=== PATIENT | female | born 1980 | race Caucasian/White ===

== ENCOUNTER 2021-04-09 20:46 | Emergency (ER) | payer SELFPAY ==
[2021-04-09 21:28] VITALS: BP 128/93; PULSE 87; RESP 20; TEMP 36.8; O2SAT 97; BMI 24.3
--- NOTE | 2021-04-10 02:14 | XRR_ITS ---
PROCEDURE INFORMATION: Exam: XR Cervical Spine Exam date and time: 04/10/2021 2:14 AM Age: 41 years old Clinical indication: Neck pain TECHNIQUE: Imaging protocol: XR of the cervical spine. Views: 2 or 3 views. COMPARISON: CR Chest 1 [place] [id number] 01/17/2017 9:37 AM FINDINGS: Bones/joints: Normal. No acute fracture. Normal alignment. Soft tissues: Unremarkable. XR/XR cervical spine 3V* [id number] IMPRESSION: No acute findings.
[2021-04-10 03:48] VITALS: BP 120/49; PULSE 73; RESP 16; O2SAT 95
--- NOTE | 2021-04-10 03:50 | ED_ITS ---
HPI - Neck Pain/Injury General: Chief Complaint: Neck Pain/Injury Stated Complaint: Rt Pain on head from eye to shoulder blade Time Seen by Provider: 04/10/21 03:50 Source: patient Mode of arrival: ambulatory Limitations: no limitations History of Present Illness: HPI Narrative: 41-year-old female has a history of chronic neck pain states she has had pain for over [address] Montes De Oca when he was here. States she also sees a chiropractor as well but has not been. States she has been having increasing flares over the last few months. She has not seen her primary care doctor for this. States tonight she is having right neck pain that is like her chronic pain and rates it a 7 out of 10. She denies any worsening improving factors. Denies any numbness or tingling in her arm. Associated symptoms: Denies headache(s) or nausea Review of Systems Const: Denies: fever(s), chills, body aches or change in appetite Eyes: Denies: blurry vision or eye discomfort ENMT: Denies: throat pain or dental pain Card: Denies: chest pain Resp: Denies: dyspnea GI: Denies: abdominal pain, nausea, vomiting or diarrhea : Denies: dysuria Musc: Reports: neck pain Skin/Breast: Denies: rash Neuro: Denies: headache(s) Psych: Denies: depression Bradford/Lymph: Denies: easy bruising All/Imm: Denies: urticaria Physical Exam Const: COMMON NORMALS: no acute distress, patient oriented x3 and healthy appearing HENMT: COMMON NORMALS: normocephalic and atraumatic HEAD & SCALP: normocephalic and atraumatic Eye: COMMON NORMALS: Equal, round and reactive pupils present and EOMs intact bilaterally PUPIL: Yes Equal, round and reactive pupils present Neck/C-Spine: COMMON NORMALS: full ROM and supple Chest: COMMONS NORMALS: normal inspection of the chest and normal palpation of entire chest wall Resp: COMMON NORMALS: normal respiratory effort, No retractions, No use of accessory muscles and clear to auscultation bilaterally AUSCULTATION: clear to auscultation bilaterally Cardio: COMMON NORMALS: regular rate, regular rhythm and No murmurs present (Cardio) RATE: regular rate RHYTHM: regular rhythm GI: COMMON NORMALS: Normal to inspection, nondistended, normoactive bowel sounds present, Soft to palpation, non-tender and no masses PALPATION: Yes Soft to palpation Extremity: COMMON NORMALS: normal to inspection and full ROM Neuro: COMMON NORMALS: patient oriented x3, moves all extremities and no focal motor deficits Psych: COMMON NORMALS: mental status grossly normal, Normal thought process present and cooperative THOUGHT PROCESS: Normal thought process present Skin: COMMON NORMALS: no rashes or lesions noted and no wounds GENERAL SKIN EXAM: no rashes or lesions noted Course Vital Signs: Vital signs: Vital Signs Temperature 98.3 F 04/09/21 21:28 Pulse Rate 73 04/10/21 03:48 Respiratory Rate 16 04/10/21 03:48 Blood Pressure 120/49 04/10/21 03:48 Pulse Oximetry 95 04/10/21 03:48 MDM - Neck Pain/Injury MDM Narrative: Medical decision making narrative: Patient presents here with neck pain that is chronic in nature. Patient is well-appearing here has no neurologic findings. She is stable for discharge is to follow-up with PCP and return if worsening. Discharge Plan Discharge Patient Disposition: Home Clinical Impression: Neck pain Condition: Stable Prescriptions: New methocarbamol 750 mg tablet 750 mg PO Q6H PRN (Reason: spasms) Qty: 20 RF: 0 Naprosyn 500 mg tablet 500 mg PO BID PRN (Reason: pain) Qty: 20 RF: 0 Discharge Orders: Discharge ED (Routine); Ordered 04/10/21 Ordered By: Bell Vásquez Referrals: Ruben Giraldo MD [Primary Care Provider] - 1-3 days Discharge Diet: Advance as tolerated Discharge Activity: Resume usual activity Patient Instructions: Cervical Sprain (ED) Coding Level of Care Code ED Refinery Operator [facility] for [facility] [place]
[2021-04-10] MEDS: dexamethasone 10 mg/mL INJ IM (04:00)
[2021-04-10] MEDS: ketorolac 60 mg/2 mL INJ IM (04:00)
[2021-04-10 04:20] VITALS: BP 106/65; PULSE 68; RESP 16; O2SAT 96
== END 2021-04-10 04:23 | disposition home or self-care (01) ==
PROVIDERS: Emergency Provider Emergency Medicine; PCP Family Medicine
DX: M54.2 Cervicalgia (principal)
CPT/HCPCS: 72040; 96372; 99283; J1100; J1885

== ENCOUNTER 2021-06-03 09:55 | Emergency (ER) | payer SELFPAY ==
[2021-06-03 10:05] VITALS: BP 152/76; PULSE 115; RESP 24; RESP 4; TEMP 37.1; O2SAT 91; BMI 23.5
--- NOTE | 2021-06-03 10:23 | ED_ITS ---
HPI - Headache General: Chief Complaint: Headache Stated Complaint: N/V; COUGH; CONGESTION X 2 DAYS Time Seen by Provider: 06/03/21 09:57 History of Present Illness: HPI Narrative: 41-year-old female comes in complaining of sinus drainage, pressure for last couple days a little bit of cough no fever sweats or chills no nausea vomiting or diarrhea. Most of her pain is in the maxillary area. MD elicited complaint: headache Onset description: gradually Location: facial and maxillary Severity: mild Quality & Timing: aching and throbbing Exacerbating factors: none Relieving factors: nothing Associated symptoms: Reports cough and weakness; Deny chest pain, confusion, diaphoresis, eye pain, eye redness, fever(s), lightheadedness, malaise, nausea, neck stiffness, numbness, paresthesias, photophobia, pre-syncope, rash, seizures, short of breath, sound sensitivity, syncope or vomiting Treatments prior to arrival: none Review of Systems Const: Denies: fever(s), malaise or diaphoresis ENMT: Reports: throat pain, nasal discharge and nasal congestion; Denies: ear or mastoid pain Card: Denies: chest pain, lightheadedness, syncope or pre-syncope Resp: Denies: dyspnea, productive cough or non-productive cough GI: Denies: nausea or vomiting : Denies: flank pain, difficulty voiding, dysuria, urinary frequency or urinary urgency Skin/Breast: Denies: rash Neuro: Denies: confusion Physical Exam Const: COMMON NORMALS: no acute distress GENERAL APPEARANCE: cooperative and comfortable ORIENTATION/CONSCIOUSNESS: Yes awake, Yes oriented to person, Yes oriented to place and Yes oriented to time HENMT: COMMON NORMALS: normocephalic, atraumatic, hearing grossly normal bilaterally, external ears normal, EAC's normal, TM's normal bilaterally and Normal nasal mucous membranes and turbinates present HEAD & SCALP: normocephalic and atraumatic FACE & SINUS: sinus tenderness maxillary (Bilateral) NOSE: Normal nasal mucous membranes and turbinates present EXTERNAL EAR: Yes external ears normal EXTERNAL AUDITORY CANAL: EAC's normal TYMPANIC MEMBRANE: TM's normal bilaterally Eye: DIRECT OPHTHALMOSCOPY: No photophobia Neck/C-Spine: COMMON NORMALS: no JVD Lymph: LYMPHATIC: no lymphadenopathy noted and no lymphedema noted Resp: COMMON NORMALS: normal respiratory effort, No retractions, No use of accessory muscles and clear to auscultation bilaterally AUSCULTATION: clear to auscultation bilaterally Cardio: COMMON NORMALS: no JVD, regular rate, regular rhythm and No murmurs present (Cardio) RATE: regular rate RHYTHM: regular rhythm GI: COMMON NORMALS: Soft to palpation and No hepatosplenomegaly present AUSCULTATION: Yes normoactive bowel sounds PALPATION: Yes Soft to palpation, No Tenderness to palpation present (GI), No Guarding due to palpation present (GI) and Yes No hepatosplenomegaly present Extremity: COMMON NORMALS: normal to inspection, capillary refill normal, no clubbing, cyanosis or edema, no calf tenderness and no pedal edema Neuro: SENSORIUM/ORIENTATION: Yes oriented to person, Yes oriented to place and Yes oriented to time Skin: COMMON NORMALS: no rashes or lesions noted GENERAL SKIN EXAM: no rashes or lesions noted Course Vital Signs: Vital signs: Vital Signs Temperature 98.7 F 06/03/21 10:05 Pulse Rate 115 H 06/03/21 10:05 Respiratory Rate 18 06/03/21 10:40 Blood Pressure 152/76 06/03/21 10:05 Pulse Oximetry 91 06/03/21 10:05 MDM - Headache Lab Data: Labs: Lab Results 06/03/21 10:47 Nasal/Oral COVID-1 9 PCR Not detected Discharge Plan Discharge Patient Disposition: Home Clinical Impression: Sinusitis Condition: Stable Prescriptions: New Augmentin 875-125 mg tablet 1 tab PO BID Qty: 20 RF: 0 pseudoephedrine HCl 60 mg tablet 60 mg PO Q6H PRN (Reason: nasal congestion) Qty: 20 RF: 0 No Action methocarbamol 750 mg tablet 750 mg PO Q6H PRN (Reason: spasms) Qty: 20 RF: 0 Naprosyn 500 mg tablet 500 mg PO BID PRN (Reason: pain) Qty: 20 RF: 0 Discharge Orders: Discharge ED (Routine); Ordered 06/03/21 Ordered By: Chris Madrid Referrals: Ruben Giraldo MD [Primary Care Provider] - Discharge Diet: Usual diet Discharge Activity: Resume usual activity Patient Instructions: Opioid Safety Coding Level of Care Code ED Client Retention Specialist for Marcela Jaya
[2021-06-03 10:40] VITALS: RESP 18
[2021-06-03] MEDS: ketorolac 60 mg/2 mL INJ IM (10:40)
[2021-06-04 15:38] LABS: Coronavirus Test Green County Not Detected
--- NOTE | 2021-06-05 09:02 | PC.NURSE ---
1st attempt made at 0900. Left VM to return call for lab results.
--- NOTE | 2021-06-05 12:17 | PC.NURSE ---
11:12 - Pt returned call to the ER, informed her of Negative results.
== END 2021-06-03 10:52 | disposition home or self-care (01) ==
PROVIDERS: Emergency Provider Family Medicine; PCP Family Medicine
DX: J32.9 Chronic sinusitis, unspecified (principal); Z20.822 Contact with and (suspected) exposure to COVID-19
CPT/HCPCS: 87635; 96372; 99283; J1885

== ENCOUNTER 2021-11-11 14:28 | Emergency (ER) | payer MEDICAID, SELFPAY ==
[2021-11-11 14:43] VITALS: BP 130/76; PULSE 86; RESP 18; TEMP 36.6; O2SAT 96; BMI 23.5
[2021-11-11 14:51] VITALS: PULSE 86; RESP 18; TEMP 36.6; O2SAT 96
--- NOTE | 2021-11-11 14:54 | W.ED.DENTAL ---
HPI - Dental/Oral General: Chief complaint: Dental/Oral Stated complaint: LEft side of face swollen Time Seen by Provider: 11/11/21 14:46 History of Present Illness: Patient has a molar lower left side that is gone bad and swelling now. Is been present for couple days. Patient has discomfort. Associated symptoms: Denies fever(s) Review of Systems Const: Denies: fever(s), chills or body aches Eyes: Denies: eye discomfort ENMT: Reports: dental pain (Swelling left mandible area times couple days); Denies: throat pain Card: Denies: chest pain Resp: Denies: dyspnea GI: Denies: abdominal pain, nausea or vomiting Skin/Breast: Denies: rash Neuro: Denies: headache(s) Psych: Denies: depression or suicidal ideation Physical Exam Const: COMMON NORMALS: no acute distress, patient oriented x3 and alert HENMT: COMMON NORMALS: normocephalic and external ears normal HEAD & SCALP: normocephalic EXTERNAL EAR: Yes external ears normal MOUTH: Normal oral and palatal mucosa present TEETH & GINGIVA IMAGES: 1. Tooth is broken does have filling in it does have tenderness to the gum below that tooth which is #18. Mild swelling left mandible same area. Eye: COMMON NORMALS: EOMs intact bilaterally Neck/C-Spine: COMMON NORMALS: no JVD Lymph: LYMPHATIC: no lymphadenopathy noted Resp: COMMON NORMALS: normal respiratory effort and No use of accessory muscles Cardio: COMMON NORMALS: no JVD GI: INSPECTION: Yes normal to inspection Extremity: COMMON NORMALS: normal to inspection and full ROM Neuro: COMMON NORMALS: patient oriented x3 SENSORIUM/ORIENTATION: Yes alert Psych: COMMON NORMALS: mental status grossly normal Skin: COMMON NORMALS: no rashes or lesions noted GENERAL SKIN EXAM: no rashes or lesions noted Course Vital Signs: Vital signs: Vital Signs Temperature 97.8 F 11/11/21 14:51 Pulse Rate 86 11/11/21 14:51 Respiratory Rate 18 11/11/21 14:51 Blood Pressure 130/76 11/11/21 14:43 Pulse Oximetry 96 11/11/21 14:51 MDM - Dental/Oral Medical Decision Making Dental abscess Discharge Plan Discharge Patient Disposition: Home Clinical Impression: Toothache Condition: Stable Prescriptions: New clindamycin HCl 300 mg capsule 300 mg PO Q8H 7 Days Qty: 21 0RF Celebrex 100 mg capsule 200 mg PO BID Qty: 20 0RF Discontinued naproxen [Naprosyn] 500 mg tablet 500 mg PO BID PRN (Reason: pain) Qty: 20 0RF amoxicillin-pot clavulanate [Augmentin] 875-125 mg tablet 1 tab PO BID Qty: 20 0RF No Action methocarbamol 750 mg tablet 750 mg PO Q6H PRN (Reason: spasms) Qty: 20 0RF pseudoephedrine HCl 60 mg tablet 60 mg PO Q6H PRN (Reason: nasal congestion) Qty: 20 0RF Discharge Orders: Discharge ED (Routine); Ordered 11/11/21 Ordered By: Gabriel Freeman Referrals: Ruben Giraldo MD [Primary Care Provider] - Discharge Diet: Usual diet Discharge Activity: Increase activity as tolerated Patient Instructions: Dental Abscess (ED) Activity Restrictions/Additional Instructions: Follow-up with medical provider as directed. Take medications as prescribed. Return to the ER or your medical provider if condition worsens. Please read and understand discharge instructions. If any questions ask please. Follow-up with dentist soon as possible. Coding Level of Care Code ED Icing And Glaze Maker for [facility] Fwd Exam Comprehensive
[2021-11-11] MEDS: CELEcoxib 200 mg Capsule 400 MG PO (14:56)
== END 2021-11-11 15:14 | disposition home or self-care (01) ==
PROVIDERS: Emergency Provider Nurse Practitioner Family; PCP Family Medicine
DX: K08.89 Other specified disorders of teeth and supporting structures (principal)
CPT/HCPCS: 99282

== ENCOUNTER 2022-01-11 17:15 | Emergency (ER) | payer MEDICAID, SELFPAY ==
[2022-01-11 18:10] VITALS: BP 119/83; PULSE 98; RESP 20; TEMP 37.3; O2SAT 98
--- NOTE | 2022-01-11 19:04 | ED_ITS ---
HPI - Abdominal Pain General: Chief Complaint: Abdominal Pain Stated Complaint: L side pain Time Seen by Provider: 01/11/22 19:04 History of Present Illness: 41-year-old female in with multiple concerns including some left-sided chest pain that radiates down into her flank and low back. The patient reports that she has had repetitive nausea and vomiting she says that she has vomited some 20 times today. She does not feel like she has been running a fever. Patient denies any hematuria. She does have a history of kidney stones but reports this feels different. No skin rash or vaginal discharge. She denies . The patient does not have a headache or any constitutional symptoms. Patient notes no palliative or provocative factors to her pain. Review of Systems General: Reports: 10 or more systems reviewed and unremarkable except in HPI and below Physical Exam Const: COMMON NORMALS: no acute distress, patient oriented x3, alert and well nourished Eye: COMMON NORMALS: Equal, round and reactive pupils present, EOMs intact bilaterally and conjunctivae normal CONJUNCTIVA: Yes conjunctivae normal PUPIL: Yes Equal, round and reactive pupils present Neck/C-Spine: COMMON NORMALS: full ROM, no lymphadenopathy, supple, no meningeal signs and no JVD Resp: COMMON NORMALS: normal respiratory effort, No retractions and clear to auscultation bilaterally AUSCULTATION: clear to auscultation bilaterally Cardio: COMMON NORMALS: no JVD GI: COMMON NORMALS: Normal to inspection, nondistended, normoactive bowel sounds present, Soft to palpation, non-tender, No hepatosplenomegaly present and no masses PALPATION: Yes Soft to palpation and Yes No hepatosplenomegaly present : COMMON NORMALS: Yes no CVA tenderness BLADDER/KIDNEY EXAM: Yes no CVA tenderness Back/Pelvis: COMMON NORMALS: no CVA tenderness Extremity: COMMON NORMALS: normal to inspection, full ROM, capillary refill normal and no joint enlargement Neuro: COMMON NORMALS: patient oriented x3 SENSORIUM/ORIENTATION: Yes alert MENINGEAL SIGNS: Yes no meningeal signs Skin: COMMON NORMALS: no rashes or lesions noted, no wounds, turgor normal and no jaundice GENERAL SKIN EXAM: no rashes or lesions noted and turgor normal Course 2 ED course: 41-year-old female in with concerns of left flank pain and vomiting. Mild temperature elevation. Work-up in the emergency department revealed concerns pyelonephritis. She had nitrate positive urine and some stranding around her kidney but no obstructing stone. Patient was treated in the emergency department felt better and was discharged home with close follow- up. Recommend follow-up with her PCP. Her PCP is someone I know well and have taught him a lot over the years. He should be able to take it from here. Return precautions given to the patient. Vital Signs: Vital signs: Vital Signs Temperature 99.2 F 01/11/22 18:10 Pulse Rate 98 01/11/22 18:10 Respiratory Rate 20 H 01/11/22 18:10 Blood Pressure 119/83 01/11/22 18:10 Pulse Oximetry 98 01/11/22 18:10 MDM - Abdominal Pain Medical Decision Making 41-year-old female in with the some vague symptoms that could be a kidney stone or pyelonephritis or viral infection or regular cystitis. Lab Data : 01/11/22 20:24 01/11/22 20:24 Labs/Radiology: Radiology Impressions Abdomen/Pelvis CT 01/11/22 19:30 IMPRESSION: Punctate nonobstructing stone in the inferior pole of the left kidney. Mild asymmetric left perinephric fat stranding potentially indicative of urinary tract infection/pyelonephritis or possibly sequela of recently passed stone which is not visualized. Correlate with urinalysis. Chest X-Ray 01/11/22 19:30 IMPRESSION: No acute findings. Laboratory Results WBC 13.8 10^3/uL (4.0-10.0) H 01/11/22 20:24 RBC 4.60 10^6/uL (4.1-5.3) 01/11/22 20:24 Hgb 14.4 g/dL (11.5-15.3) 01/11/22 20:24 Hct 43.5 % (37.0-47.0) 01/11/22 20:24 MCV 94.6 fl (81-99) 01/11/22 20:24 MCH 31.3 pg (28.0-34.0) 01/11/22 20:24 MCHC 33.1 g/dL (30.0-36.0) 01/11/22 20:24 RDW 13.8 % (12.1-15.1) 01/11/22 20:24 Plt Count 322 10^3/cmm (130-400) 01/11/22 20:24 MPV 10.2 fL (7.4-10.4) 01/11/22 20:24 Neut % (Auto) 81.2 % 01/11/22 20:24 Lymph % (Auto) 8.7 % 01/11/22 20:24 Jennings % (Auto) 9.5 % 01/11/22 20:24 Eos % (Auto) 0.0 % 01/11/22 20: Baso % (Auto) 0.2 % 01/11/22 20:24 Neut # (Auto) 11.23 10^3/uL (1.8-7.7) H 01/11/22 20: Lymph # (Auto) 1.2 10^3/uL (0.8-4.8) 01/11/22 20: Jennings # (Auto) 1.3 10^3/uL (0.2-0.9) H 01/11/22 20:24 Eos # (Auto) 0.0 10^3/uL (0.0-0.8) 01/11/22 20: Baso # (Auto) 0.0 10^3/uL (0.0-0.1) 01/11/22 20: Nucleated RBC % (auto) 0 % 01/11/22: Nucleated RBCs # 0.0 /100WBC 01/11/22 20:24 Sodium 136 mmol/L (136-145) 01/11/22 20:24 Potassium 3.5 mmol/L (3.5-5.1) 01/11/22: Chloride 102 mmol/L (98-107) 01/11/22 20:24 Carbon Dioxide 23 mmol/L (22-29) 01/11/22 20:24 Anion Gap 14.5 (5-19) 01/11/22 20:24 BUN 10 mg/dL (6-20) 01/11/22 20:24 Creatinine 0.5 mg/dL (0.5-0.9) 01/11/22 20:24 GFR Calculation 136.0 mL/min (90-130) H 01/11/22 20:24 Glucose 102 mg/dL (65-115) 01/11/22 20:24 Calculated Osmolality 281 mOsm/kg (285-295) L 01/11/22 20: Calcium 9.3 mg/dL (8.5-10.5) 01/11/22 20:24 Total Bilirubin 0.4 mg/dL (0.15-1.2) 01/11/22 20:24 AST 11 U/L (0-32) 01/11/22 20:24 ALT 9 U/L (0-33) 01/11/22 20:24 Alkaline Phosphatase 90 IU/L (35-105) 01/11/22 20: Total Protein 7.8 g/dL (6.6-8.7) 01/11/22 20: Albumin 4.1 g/dL (3.5-5.2) 01/11/22: Globulin 3.7 g/dL (1.3-4.6) 01/11/22 20:24 HCG, Qual Negative (Negative) 01/11/22 22:10 Urine Color Yellow (Yellow) 01/11/22 22:10 Urine Appearance Cloudy (CLEAR) 01/11/22 22:10 Urine pH 6 (5-7) 01/11/22 22:10 Ur Specific [place] 1.010 (1.005-1.030) 01/11/22 22:10 Urine Protein Trace (Negative) 01/11/22 22:10 Urine Glucose (UA) Norm (Normal) 01/11/22 22:10 Urine Ketones 2+ (Negative) H 01/11/22 22:10 Urine Blood 3+ (Negative) H 01/11/22 22:10 Urine Nitrate Positive (Negative) H 01/11/22 22:10 Urine Bilirubin Neg (Negative) 01/11/22 22:10 Urine Urobilinogen Norm mg/dL (Negative) 01/11/22 22:10 Ur Leukocyte Esterase 1+ (Negative) H 01/11/22 22:10 Urine RBC 5-10 /hpf (0-2) H 01/11/22 22:10 Urine WBC 40-55 /hpf (0-5) H 01/11/22 22:10 Ur Squamous Epith Cells 5-10 /hpf (0-5) H 01/11/22 22:10 Amorphous Sediment Not Reportable 01/11/22 22:10 Urine Bacteria 2+ /hpf (NONE) H 01/11/22 22:10 Urine Mucus Trace /hpf 01/11/22 22:10 Urine Opiates Screen Negative ng/mL (Negative) 01/11/22 22:10 Ur Barbiturates Screen Negative ng/mL (Negative) 01/11/22 22:10 Ur Phencyclidine Scrn Negative ng/mL (Negative) 01/11/22 22:10 Ur Amphetamines Screen Negative ng/mL (Negative) 01/11/22 22:10 U Benzodiazepines Scrn Negative ng/mL (Negative) 01/11/22 22:10 Urine Cocaine Screen Negative ng/mL (Negative) 01/11/22 22:10 U Marijuana (THC) Screen Positive ng/mL (Negative) H 01/11/22 22:10 Discharge Plan Discharge Patient Disposition: Home Clinical Impression: Pyelonephritis Condition: Stable Prescriptions: No Action No Known Home Medications 0RF Discharge Orders: Discharge ED (Routine); Ordered 01/11/22 Ordered By: Erich Clark Referrals: Ruben Giraldo MD [Primary Care Provider] - Discharge Diet: Advance as tolerated Discharge Activity: Resume usual activity Patient Instructions: Opioid Safety Activity Restrictions/Additional Instructions: 1. Take Medication as directed. 2. Follow up with PCP in 2-3 days. 3. Return for new or worsening symptoms as discussed - inability to keep medications down, intractable symptoms or other worrisome concerns. Coding Level of Care Code ED Citrus Peeler for [facility] [place] Exam Comprehensive
--- NOTE | 2022-01-11 19:30 | XRR_ITS ---
PROCEDURE INFORMATION: Exam: XR Chest Exam date and time: 01/11/2022 7:37 PM Age: 41 years old Clinical indication: Other: Back pain TECHNIQUE: Imaging protocol: XR of the chest. Views: 1 view. COMPARISON: CR Chest 1 [place] [id number] 01/17/2017 9:37 AM FINDINGS: Lungs: Unremarkable. No consolidation. Pleural spaces: Unremarkable. No pleural effusion. No pneumothorax. Heart/Mediastinum: Unremarkable. No cardiomegaly. Bones/joints: Unremarkable. XR/XR chest 1V portable [id number] IMPRESSION: No acute findings.
--- NOTE | 2022-01-11 19:30 | CTR_ITS ---
PROCEDURE INFORMATION: Exam: CT Abdomen And Pelvis Without Contrast Exam date and time: 01/11/2022 8:07 PM Age: 41 years old Clinical indication: Nausea and vomiting; Abdominal pain; Localized; Right upper quadrant (ruq); Prior surgery; Surgery date: 6+ months; Surgery type: Leep laser lap; Additional info: ? Stone TECHNIQUE: Imaging protocol: Computed tomography of the abdomen and pelvis without contrast. Radiation optimization: All CT scans at this facility use at least one of these dose optimization techniques: automated exposure control; mA and/or kV adjustment per patient size (includes targeted exams where dose is matched to clinical indication); or iterative reconstruction. COMPARISON: US pelvic with transvaginal 03/31/2015 12:30 PM RADIATION DOSE METRICS: Total DLP (mGy-cm): 1437.86 FINDINGS: Liver: Normal. No mass. Gallbladder and bile ducts: Normal. No calcified stones. No ductal dilation. Pancreas: Normal. No ductal dilation. Spleen: Normal. No splenomegaly. Adrenal glands: Normal. No mass. Kidneys and ureters: Punctate nonobstructing stone in the inferior pole of the left kidney series 2, image 37. Mild asymmetric left-sided perinephric stranding. No hydronephrosis. Stomach and bowel: Unremarkable. No obstruction. No mucosal thickening. Appendix: No evidence of appendicitis. Intraperitoneal space: Unremarkable. No free air. No significant fluid collection. Vasculature: Unremarkable. No abdominal aortic aneurysm. Lymph nodes: Unremarkable. No enlarged lymph nodes. Urinary bladder: Unremarkable as visualized. Reproductive: Unremarkable as visualized. Bones/joints: No acute fracture. Degenerative disc disease at L5-S1. Soft tissues: Unremarkable. CT/CT abdomen pelvis wo con [id number] IMPRESSION: Punctate nonobstructing stone in the inferior pole of the left kidney. Mild asymmetric left perinephric fat stranding potentially indicative of urinary tract infection/pyelonephritis or possibly sequela of recently passed stone which is not visualized. Correlate with urinalysis.
[2022-01-11] MEDS: ketorolac 30 mg/mL INJ IVP (20:23)
[2022-01-11] MEDS: sodium chloride 0.9% 1,000 ML 999 ML IV (20:24)
[2022-01-11 20:34] LABS: Basophils % 0.2 %; Hematocrit 43.5 % (37.0-47.0); Hemoglobin 14.4 g/dL (11.5-15.3); Lymphocytes # 1.2 10^3/uL (0.8-4.8); Lymphocytes % 8.7 %; Mean Corpuscular HGB Conc 33.1 g/dL (30.0-36.0); Mean Corpuscular Hemoglobin 31.3 pg (28.0-34.0); Mean Corpuscular Volume 94.6 fl (81-99); Mean Platelet Volume 10.2 fL (7.4-10.4); Monocytes # 1.3 10^3/uL (0.2-0.9); Monocytes % 9.5 %; Neutrophils # 11.23 10^3/uL (1.8-7.7); Neutrophils % 81.2 %; Nucleated Red Blood Cells % 0 %; Platelet Count 322 10^3/cmm (130-400); Red Cell Distribution Width 13.8 % (12.1-15.1); White Blood Count 13.8 10^3/uL (4.0-10.0)
[2022-01-11] MEDS: ondansetron 2 mg/ML SDV 2 mL 4 MG IVP (20:48)
[2022-01-11 20:51] LABS: Alanine Aminotransferase 9 U/L (0-33); Albumin Level 4.1 g/dL (3.5-5.2); Alkaline Phosphatase 90 IU/L (35-105); Anion Gap 14.5 (5-19); Aspartate Amino Transferase 11 U/L (0-32); Blood Urea Nitrogen 10 mg/dL (6-20); Calcium 9.3 mg/dL (8.5-10.5); Carbon Dioxide 23 mmol/L (22-29); Chloride 102 mmol/L (98-107); Creatinine Clr Calc Pharmacy 154.2516; Globulin 3.7 g/dL (1.3-4.6); Glucose 102 mg/dL (65-115); Osmolality Calculated 281 mOsm/kg (285-295); Potassium 3.5 mmol/L (3.5-5.1); Sodium 136 mmol/L (136-145); Total Bilirubin 0.4 mg/dL (0.15-1.2); Total Protein 7.8 g/dL (6.6-8.7)
[2022-01-11 22:19] LABS: HCG Qualitative Urine. Negative (Negative)
[2022-01-11 22:31] LABS: Amphetamines Screen Urine Negative (Negative); Barbiturates Screen Urine Negative (Negative); Benzodiazepines Screen Urine Negative (Negative); Cocaine Screen Urine Negative (Negative); Opiate Screen Urine Negative (Negative); PCP Screen Urine Negative (Negative); THC Screen Urine Positive (Negative)
[2022-01-11 22:46] LABS: Add Urine Microscopic? YES; Bilirubin Urine Neg (Negative); Blood Urine 3+ (Negative); Glucose Urine UA Norm (Normal); Ketones Urine 2+ (Negative); Leukocyte Esterase Urine 1+ (Negative); Nitrate Urine Positive (Negative); Protein Urine Trace (Negative); Urine Appearance Cloudy (CLEAR); Urine Color Yellow (Yellow); Urobilinogen Urine Norm (Negative); pH Urine 6 (5-7)
[2022-01-11 22:47] LABS: Add Urine Culture? Yes; Bacteria Urine 2+ /hpf; Mucus Urine TRACE /hpf; WBC Urine 40-55 /hpf (0-5)
[2022-01-11] MEDS: cefTRIAXone 2,000 MG in sodium chloride 0.9% (plus) 50 ML 100 MG IV (23:10)
[2022-01-11] MEDS: diphenhydrAMINE 50 mg/mL SDV 1mL 25 MG IVP (23:10)
[2022-01-11] MEDS: prochlorperazine 10 mg/2 mL Inj 5 MG IVP (23:10)
[2022-01-11 23:43] VITALS: BP 125/85; PULSE 93; RESP 16; TEMP 36.7; O2SAT 95
== END 2022-01-11 23:45 | disposition home or self-care (01) ==
PROVIDERS: Emergency Provider Family Medicine; PCP Family Medicine
DX: N12 Tubulo-interstitial nephritis, not specified as acute or chronic (principal)
CPT/HCPCS: 71045; 74176; 80053; 80306; 81001; 81025; 85025; 87077; 87086; 87186; 96365; 96375; 99284; J0696; J0780; J1200; J1885; J2405; J7030

== ENCOUNTER 2024-09-19 16:58 | Emergency (ER) | payer SELFPAY ==
[2024-09-19 17:02] VITALS: BP 106/76; PULSE 109; RESP 16; TEMP 36.7; O2SAT 95; BMI 29.0
[2024-09-19 19:55] LABS: Alanine Aminotransferase 9 U/L (0-33); Albumin Level 4.4 g/dL (3.5-5.2); Alkaline Phosphatase 121 U/L (35-105); Anion Gap 15.5 (5-19); Aspartate Amino Transferase 12 U/L (0-32); Blood Urea Nitrogen 16 mg/dL (6-20); Calcium 9.3 mg/dL (8.5-10.5); Carbon Dioxide 27 mmol/L (22-29); Chloride 101 mmol/L (98-107); Creatinine Clr Calc Pharmacy 133.2158; Globulin 3.6 g/dL (1.3-4.6); Glomerular Filtration Rate 108.6 mL/min (90-130); Glucose 101 mg/dL (65-115); Lipase 14 U/L (13-60); Osmolality Calculated 291 mOsm/kg (285-295); Potassium 3.5 mmol/L (3.5-5.1); Sodium 140 mmol/L (136-145); Total Bilirubin 0.5 mg/dL (0.15-1.2)
[2024-09-19 19:57] LABS: HCG, Serum Qual Negative (Negative)
[2024-09-19 20:05] LABS: Bilirubin Urine Negative (Negative); Blood Urine 2+ (Negative); Glucose Urine UA Negative (Normal); Ketones Urine 3+ (Negative); Leukocyte Esterase Urine Trace (Negative); Nitrate Urine Negative (Negative); Protein Urine 1+ (Negative); Urine Appearance Clear (CLEAR); Urine Color Yellow (Yellow); pH Urine 6.5 (5-7)
[2024-09-19 20:07] LABS: Add Urine Microscopic? YES; Bacteria Urine None Seen /hpf; Hyaline Casts Urine 6.17 /lpf; RBC Urine 21-50 /hpf (0-2); Squamous Epithelial Cell Urine 0-5 /hpf (0-5)
--- NOTE | 2024-09-19 20:08 | ED_ITS ---
HPI - Nausea/Vomiting/Diarrhea 2 General: Chief complaint: Nausea/Vomiting/Diarrhea Stated complaint: n,v,body pains, Time Seen by Provider: 09/19/24 19:39 History of Present Illness: 44-year-old female who presents emergenc y room with nausea vomiting and diarrhea. She has malaise and aches all over. No known fevers. No flank pain. No focal abdominal pain. No altered mental status. Related Data Previous Rx's Medication Instructions Recorded cephalexin 500 mg tablet 500 mg PO TID 5 days #15 tabs 09/19/24 ondansetron 8 mg disintegrating 8 mg PO Q6H #14 tabs 09/19/24 tablet promethazine 25 mg rectal 25 mg SC Q6H PRN nausea and 09/19/24 suppository vomiting #12 ea Allergies Allergy/AdvReac Type Severity Reaction Status Date / Time tramadol Allergy Unknown Verified 01/11/22 19:56 Review of Systems 2 Narrative: Constitutional symptoms: Negative except as documented in HPI. Skin symptoms: Negative except as documented in HPI. Eye symptoms: Negative except as documented in HPI. ENMT symptoms: Negative except as documented in HPI. Respiratory symptoms: Negative except as documented in HPI. Cardiovascular symptoms: Negative except as documented in HPI. Gastrointestinal symptoms: Negative except as documented in HPI. Genitourinary symptoms: Negative except as documented in HPI. Musculoskeletal symptoms: Negative except as documented in HPI. Neurologic symptoms: Negative except as documented in HPI. Psychiatric symptoms: Negative except as documented in HPI. Endocrine symptoms: Negative except as documented in HPI. Physical Exam 2 Narrative: EXAM NARRATIVE: General: Alert, no acute distress. Skin: Warm, dry. Head: Normocephalic, atraumatic. Neck: Supple, trachea midline. Eye: Extraocular movements are intact. Ears, nose, mouth and throat: Dry oral mucosa Cardiovascular: Regular, Normal peripheral perfusion. Respiratory: Lungs are clear to auscultation, respirations are non-labored, breath sounds are equal, Symmetrical chest wall expansion. Gastrointestinal: Soft, Nontender, Non distended Musculoskeletal: Normal ROM, no deformity. Neurological: Alert and oriented, No focal neurological deficit observed. Psychiatric: Cooperative, appropriate mood & affect. Course 2 Vital Signs: Vital signs: Vital Signs Temperature 98.1 F 09/19/24 17:02 Pulse Rate 78 09/19/24 20:24 Respiratory Rate 18 09/19/24 20:24 Blood Pressure 124/82 09/19/24 20:24 Pulse Oximetry 96 09/19/24 20:24 Oxygen Delivery Me thod Room Air 09/19/24 20:24 MDM - Nausea/Vomiting/Diarrhea Medical Decision Making Medical decision making: Differential diagnosis for this patient with nausea and vomiting including but not limited to and based on the above HPI, review of systems and physical exam: Urinary tract infection. Appendicitis. Cholecystis. colitis. small bowel obstruction. crohn's flare. pancreatitis. gastritis. peptic ulcer. cyclic vomiting. Viral illness. Influenza. COVID. Orders placed to evaluate differential diagnosis based on the above differential, HPI and physical exam Lab Review: Laboratory results were reviewed and interpreted by myself the emergency room physician. No leukocytosis. No anemia. No renal failure. Urine is concentrated and shows early signs of an infection. Flu and COVID are negative. I reviewed the patient's medical record. Reexamination: Patient is feeling much better. Tolerating p.o. at this point. No increased work of breathing. No altered mental status. Assessment and plan: Gastroenteritis Urinary tract infection Dehydration ?Normal saline bolus, IV Rocephin, IV Zofran x 2 doses and IV Dilaudid. - Discharged home - Discussed plan with patient. Answered any questions. - Evaluation and treatment of this problem were appropriate in the emergency setting. Lab Data 09/19/24 19:30 09/19/24 19:30 Laboratory Results WBC 9.53 10^3/uL (3.29-11.43) 09/19/24 19: RBC 4.97 10^6/uL (3.85-5.65) 09/19/24 19:30 Hgb 15.20 g/dL (11.27-16.99) 09/19/24 19:30 Hct 45.7 % (36-47) 09/19/24 19:30 MCV 92.0 fl (85-98) 09/19/24 19: MCH 30.6 pg (27-33) 09/19/24 19: MCHC 33.3 g/dL (30-55) 09/19/24 19: RDW 15.9 % (12.1-15.1) H 09/19/24 19:30 Plt Count 340 10^3/cmm (157-399) 09/19/24 19:30 MPV 10.4 fL (7.4-10.4) 09/19/24 19:30 Neut % (Auto) 78.3 % 09/19/24 19:30 Lymph % (Auto) 14.6 % 09/19/24 19:30 [place] % (Auto) 6.5 % 09/19/24 19:30 Eos % (Auto) 0.2 % 09/19/24: Baso % (Auto) 0.1 % 09/19/24: Neut # (Auto) 7.46 10^3/uL (1.8-7.7) 09/19/24 19: Lymph # (Auto) 1.4 10^3/uL (0.8-4.8) 09/19/24 19: [place] # (Auto) 0.6 10^3/uL (0.2-0.9) 09/19/24 19:30 Eos # (Auto) 0.0 10^3/uL (0.0-0.8) 09/19/24: Baso # (Auto) 0.0 10^3/uL (0.0-0.1) 09/19/24: Nucleated RBC % (auto) 0 % 09/19/24: Nucleated RBCs # 0.0 /100WBC 09/19/24 19:30 Sodium 140 mmol/L (136-145) 09/19/24 19:30 Potassium 3.5 mmol/L (3.5-5.1) 09/19/24: Chloride 101 mmol/L (98-107) 09/19/24 19: Carbon Dioxide 27 mmol/L (22-29) 09/19/24 19:30 Anion Gap 15.5 (5-19) 09/19/24 19:30 BUN 16 mg/dL (6-20) 09/19/24 19:30 Creatinine 0.6 mg/dL (0.5-0.9) 09/19/24 19:30 GFR Calculation 108.6 mL/min (90-130) 09/19/24 19:30 Glucose 101 mg/dL (65-115) 09/19/24: Calculated Osmolality 291 mOsm/kg (285-295) 01/16/25 19:30 Calcium 9.3 mg/dL (8.5-10.5) 09/19/24 19: Total Bilirubin 0.5 mg/dL (0.15-1.2) 09/19/24 19: AST 12 U/L (0-32) 09/19/24 19:30 ALT 9 U/L (0-33) 09/19/24 19: Alkaline Phosphatase 121 U/L (35-105) H 09/19/24 19: Total Protein 8.0 g/dL (6.6-8.7) 09/19/24 19: Albumin 4.4 g/dL (3.5-5.2) 09/19/24 19: Globulin 3.6 g/dL (1.3-4.6) 09/19/24 19: Lipase 14 U/L (13-60) 09/19/24 19: HCG, Qual Negative (Negative) 09/19/24 19: Urine Color Yellow (Yellow) 09/19/24 19:55 Urine Appearance Clear (CLEAR) 09/19/24 19:55 Urine pH 6.5 (5-7) 09/19/24 19:55 Ur Specific [place] 1.032 (1.005-1.030) H 09/19/24 19:55 Urine Protein 1+ (Negative) A 09/19/24 19: Urine Glucose (UA) Negative (Normal) 09/19/24 19: Urine Ketones 3+ (Negative) H 09/19/24 19:55 Urine Blood 2+ (Negative) A 09/19/24 19:55 Urine Nitrate Negative (Negative) 09/19/24 19: Urine Bilirubin Negative (Negative) 09/19/24 19: Urine Urobilinogen 1.0 mg/dL (Negative) 09/19/24 19:55 Ur Leukocyte Esterase Trace (Negative) A 09/19/24 19:55 Urine RBC 21-50 /hpf (0-2) H 09/19/24 19:55 Urine WBC 11-20 /hpf (0-5) H 09/19/24 19:55 Ur Squamous Epith Cells 0-5 /hpf (0-5) 09/19/24 19:55 Amorphous Sediment Not Reportable 09/19/24 19:55 Urine Bacteria None seen /hpf (NONE) 09/19/24 19:55 Hyaline Casts 6.17 /lpf 09/19/24 19:55 Urine Yeast 1+ /hpf H 09/19/24 19:55 Influenza Type A Ag negative (Negative) 09/19/24 19:50 Influenza Type B Ag negative (Negative) 09/19/24 19:50 SARS-CoV-2 Ag (Rapid) negative (Negative) 09/19/24 19:50 No radiology studies performed this visit Discharge Plan Discharge Patient Disposition: Home Clinical Impression: Gastroenteritis, UTI (urinary tract infection), Dehydration Condition: Stable Prescriptions: New promethazine 25 mg suppository 25 mg SC Q6H PRN (Reason: nausea and vomiting) Qty: 12 0RF ondansetron 8 mg tablet,disintegrating 8 mg PO Q6H Qty: 14 0RF Rx Instructions: Take 1/2-1 tab every 6 hours as needed for nausea and vomiting cephalexin 500 mg tablet 500 mg PO TID 5 Days Qty: 15 0RF Discharge Orders: Discharge ED (Routine); Ordered 09/19/24 Ordered By: Antonia Bowen Referrals: Ruben Giraldo MD [Primary Care Provider] - Discharge Diet: Advance as tolerated Discharge Activity: Increase activity as tolerated Patient Instructions: [place] Diet - Adult, Gastroenteritis (ED), Acute Nausea and Vomiting (ED), Opioid Safety, Pain Management Activity Restrictions/Additional Instructions: Thank you for choosing [facility] for your healthcare needs today. Please realize this is an emergency room and that we are providing you with a medical screening exam and this may not be complete and all inclusive of all the testing and or work up that you may need to determine your ailment or severity of your illness. You have been screened and evaluated and felt safe for discharge. Health conditions do change or evolve sometimes and as such it is important that you follow up with your Primary Doctor to be re checked, 3-5 days is a general good time frame for follow up. You are always welcome to return to the ED for re assessment if your symptoms are worsening or you have new concerns Coding Level of Care Code ED Equal Opportunity Specialist for [place]
[2024-09-19 20:14] LABS: Basophils % 0.1 %; Eosinophils % 0.2 %; Hematocrit 45.7 % (36-47); Lymphocytes # 1.4 10^3/uL (0.8-4.8); Lymphocytes % 14.6 %; Mean Corpuscular HGB Conc 33.3 g/dL (30-55); Mean Corpuscular Hemoglobin 30.6 pg (27-33); Mean Platelet Volume 10.4 fL (7.4-10.4); Monocytes # 0.6 10^3/uL (0.2-0.9); Monocytes % 6.5 %; Neutrophils # 7.46 10^3/uL (1.8-7.7); Neutrophils % 78.3 %; Nucleated Red Blood Cells % 0 %; Platelet Count 340 10^3/cmm (157-399); Red Blood Count 4.97 10^6/uL (3.85-5.65); Red Cell Distribution Width 15.9 % (12.1-15.1); White Blood Count 9.53 10^3/uL (3.29-11.43)
[2024-09-19 20:15] LABS: Influenza A by IFA negative (Negative); Influenza B by IFA negative (Negative)
[2024-09-19 20:16] LABS: SARS Covid-2 Antigen negative (Negative)
[2024-09-19 20:17] LABS: Add Urine Culture? Yes; Specific Gravity, Urine 1.032 (1.005-1.030); UA Slide Review UA Slide Review Perf
[2024-09-19] MEDS: ondansetron 2 mg/ML SDV 2 mL 8 MG IVP ×2 (20:22→21:45)
[2024-09-19 20:23] VITALS: RESP 18; O2SAT 96
[2024-09-19] MEDS: sodium chloride 0.9% 1,000 ML 999 ML IV (20:23)
[2024-09-19] MEDS: HYDROmorphone 1 mg/mL INJ 1 mL 0.5 MG IVP (20:23)
[2024-09-19 20:24] VITALS: BP 124/82; PULSE 78; RESP 18; O2SAT 96
[2024-09-19 21:30] VITALS: PULSE 85; RESP 16; O2SAT 93
[2024-09-19] MEDS: cefTRIAXone 1,000 mg SDV 1000 MG IVP (21:45)
[2024-09-19 22:00] VITALS: BP 120/76; PULSE 84; O2SAT 96
== END 2024-09-19 22:01 | disposition home or self-care (01) ==
PROVIDERS: Physician Assistant; Emergency Provider Emergency Medicine; PCP Family Medicine
DX: K52.9 Noninfective gastroenteritis and colitis, unspecified (principal); Z11.52 Encounter for screening for COVID-19; N39.0 Urinary tract infection, site not specified; E86.0 Dehydration
CPT/HCPCS: 36415; 80053; 81001; 83690; 84703; 85025; 87086; 87426; 87804; 96374; 96375; 96376; 99284; J0696; J1171; J2405; J7030